=== PATIENT | female | born 1940 | race Caucasian/White ===

== ENCOUNTER 2019-09-08 13:31 | Emergency (ER) | payer MEDICARE, OTHER, SELFPAY ==
--- NOTE | ~2019-09-08 | CT_ITS ---
EXAMINATION: CT brain wo con INDICATION: Headache, history of traumatic brain injury COMPARISON: None TECHNIQUE: Standard unenhanced head CT. The dose-length product (DLP) was 605.33 mGy-cm. The mA was a djusted according to patient size. Iterative reconstruction technique was employed. FINDINGS: There is a hyperdense extra-axial fluid collection adjacent to the left frontal lobe which measures 3 mm in maximum There is no acute intraparenchymal hemorrhage. No evidence of mass lesion. N o evidence of acute infarction. There is encephalomalacia in right frontal lobe. There is mild perive ntricular and subcortical hypodensity probably related to small vessel ischemic disease. There is mil d prominence of the sulci and ventricles related to cerebral atrophy. Intracranial calcified cerebral atherosclerosis is noted. There is no mass effect or midline shift. The orbits and soft tissues are unremarkable. The visualized sinuses and mastoid air cells are well aerated. There are changes of le ft frontotemporal craniotomy. IMPRESSION: 1. Findings consistent with acute left subdural hematoma. Comparison with prior imaging would be help ful. Neurosurgical evaluation is recommended. These findings and recommendations were discussed with Dr. Sendy Sterling MD in the Emergency Department at 1414 hours on 09/08/2019. 2. 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 Reviewed, dictated and finalized at location B. CUTTER IMPRESSION: 1. Findings consistent with acute left subdural hematoma. Comparison with prior imaging would be helpful. Neurosurgical evaluation is recommended. These findi ngs and recommendations were discussed with Dr. Sendy Sterling MD in the [facility] at 1414 hours on 09/08/2019. 2. 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
--- NOTE | 2019-09-08 13:40 | ED.GENADULT ---
HPI - General Adult General Chief complaint: Headache Stated complaint: headache Time Seen by Provider: 09/08/19 13:36 Source: patient, family (daughter) and RN notes reviewed Mode of arrival: ambulatory Limitations: no limitations History of Present Illness HPI narrative: A 79 y/o female presents to the ED because the family is concerned of a possible brain bleed and would like the pt to have a head CT. The pt states that this morning she kept feeling like she had to change the position of her head while she was laying down. The daughter reports that she called the pt's PCP to discussed this since the pt is on Xarelto, who told her to bring the pt to the ED if they had concerns. The pt notes a recent floating sensation that she says is like dizziness when she walks and some urinary urgency. She denies any ANTONY, neck pain, neck stiffness, N/V/D, numbness, weakness, ABD pain, dysuria, or hematuria. patient denies any trauma. MD complaint: The family would like the pt to have a head CT Onset (ago): hour(s) Location: head Exacerbating factors: other (laying down) Associated symptoms: other (dizziness floating sensation when she walks and urinary urgency) Related Data Home Medications Medication Instructions Recorded Confirmed levothyroxine 09/08/19 Allergies Allergy/AdvReac Type Severity Reaction Status Date / Time cetirizine Allergy Unknown Unknown Verified 09/08/19 13:56 No Known Allergies Allergy Verified 09/08/19 13:56 Review of Systems Review of Systems: All systems reviewed & are unremarkable except as noted in HPI and below Gastrointestinal: Gastrointestinal: Denies abdominal pain, Denies diarrhea, Denies nausea and Denies vomiting Genitourinary: Genitourinary: Denies hematuria, Denies dysuria and Reports urinary urgency Musculoskeletal: Musculoskeletal: Denies neck pain and Denies stiffness (neck) Neurologic: Reports dizziness ( floating sensation when she walks), Denies headache(s), Denies numbness and Denies weakness [facility] Past Medical History Medical History (Updated 09/09/19 @ 00:00 by Background Daemon) Arthritis (Acute) GERD (gastroesophageal reflux disease) (Acute) History of angina (Acute) History of coma (Acute) History of herniated intervertebral disc (Acute) Hunner's ulcer (Acute) Hx of fracture of rib (Acute) multiple Hypercholesteremia (Acute) Hypothyroid (Acute) IBS (irritable bowel syndrome) (Acute) MVP (mitral valve prolapse) (Acute) Pneumonia (Acute) Seizures (Acute) UTI (urinary tract infection) (Acute) Surgical History Surgical History (Updated 09/08/19 @ 13:57 by Baldomero Blandon) History of appendectomy (Acute) History of bladder surgery (Acute) suspension, cysto with bladder bx's x2 History of craniotomy (Acute) History of hysterectomy (Acute) History of local excision of skin lesion (Acute) History of tonsillectomy (Acute) History of vascular surgery (Acute) vein laser rt leg Hx of tubal ligation (Acute) Family History Family History (Updated 06/09/14 @ 07:13 by DOCTOR UNKNOWN) Grandparent Cerebrovascular accident Social History Social History Smoking status: Never smoker Second hand tobacco smoke exposure: No Alcohol intake: never Gender identity (if verbalized by the patient): Female Comments PMHx: melanoma rt leg, basal cell on nose. PCP: Dr. Turner. Exam Const: General: healthy appearing, no acute distress and alert Orientation/consciousness: oriented x3 HENMT: Head: normal to inspection, no contusions and no hematomas Ears: TM's normal bilaterally Mouth: Yes moist mucous membranes Eyes: Conjunctivae: conjunctivae normal Pupils: PERRL EOM: EOM intact bilaterally Neck: Neck: normal visual inspection, no lymphadenopathy and no meningeal signs Chest: Chest palpation & inspection: normal inspection of the chest Resp: Effort & Inspection: normal respiratory effort Auscultation: clear to auscultation bilaterally Cardio: Rate: reg
[2019-09-08 13:50] VITALS: BP 146/87; PULSE 82; RESP 17; TEMP 36.8; O2SAT 96
[2019-09-08 14:33] LABS: Basophils Absolute Auto 0.1 K/mm3 (0.0-0.1); Basophils Percent Auto 0.6 % (0.2-1.2); Eosinophils Absolute Auto 0.1 K/mm3 (0-0.3); Eosinophils Percent Auto 1.3 % (0-4.4); Hematocrit 45.6 % (37.0-47.0); Hemoglobin 14.4 g/dL (12.0-15.0); Immature Granulocyte Absolute 0.05 K/mm3 (0.00-0.031); Immature Granulocyte Percent A 0.6 % (0-0.5); Lymphocytes Absolute Auto 1.89 K/mm3 (0.9-3.2); Lymphocytes Percent Auto 22.4 % (18.3-44.2); Mean Corpuscular HGB Conc 31.6 g/dl (32-36); Mean Corpuscular Hemoglobin 29.9 pg (26-34); Mean Corpuscular Volume 94.8 fl (80-100); Mean Platelet Volume 10.8 fl (7.4-10.4); Monocytes Absolute Auto 0.6 K/mm3 (0.1-0.6); Monocytes Percent Auto 6.7 % (2.6-8.5); Neutrophils Absolute Auto 5.8 K/mm3 (1.3-6.7); Neutrophils Percent Auto 68.4 % (45.5-73.1); Platelet Count Result 164 k/mm3 (150-375); Red Blood Count 4.81 M/mm3 (4.2-5.4); Red Cell Distribution Width 14.2 % (11.5-14.5); White Blood Count 8.5 K/mm3 (4.5-10.0)
[2019-09-08 14:38] LABS: Add Urine Microscopic? YES; Appearance Urine Clear (Clear); Bacteria Urine Trace /hpf; Bilirubin Urine Negative (Negative); Blood Urine 1+ (Negative); Color Urine Yellow (Yellow); Glucose Urine UA Negative (Negative); Ketones Urine Negative (Negative); Leukocyte Esterase Ur 3+ LEU/UL (Negative); Mucus Urine Rare /lpf; Nitrate Urine Negative (Negative); Protein Urine Negative (Negative); Specific Grav Ur 1.012 (1.001-1.035); Squamous Epithelial Cell Urine Rare /hpf (Few); Urobilinogen Urine Negative mg/dL (<2.0); WBC Urine 21-30
[2019-09-08 14:51] LABS: INR 1.5; Prothrombin Time 17.8 Seconds (11.1-14.7)
[2019-09-08 14:52] LABS: Partial Thromboplastin Time 43.4 SECONDS (22.3-36.8)
[2019-09-08 15:11] LABS: Alanine Aminotransferase 19 U/L (4-35); Albumin Level 4.2 g/dL (3.5-5.1); Alkaline Phosphatase 67 U/L (38-126); Aspartate Amino Transferase 25 U/L (14-36); Bilirubin,Total 0.3 mg/dL (0.2-1.3); Blood Urea Nitrogen 15 mg/dL (7-17); Calcium 9.2 mg/dL (8.4-10.2); Carbon Dioxide 30 mmol/L (22-30); Chloride 101 mmol/L (98-107); Estimated Glomerular Filt Rate > 60; Glucose 88 mg/dL (65-105); Potassium 3.9 mmol/L (3.4-5.0); Sodium 137 mmol/L (137-145)
[2019-09-08 15:37] VITALS: BP 191/90; PULSE 86; RESP 19; O2SAT 100
[2019-09-08] MEDS: levETIRAcetam 1000MG/NACL100ML 1,000 MG/100 ML BAG 400 MG IVPB (15:37)
[2019-09-08 16:04] VITALS: BP 172/87; PULSE 87; RESP 19; O2SAT 94
[2019-09-08 16:44] VITALS: BP 163/73; PULSE 73; RESP 17; O2SAT 100
== END 2019-09-08 16:46 | disposition short-term general hospital (02) ==
PROVIDERS: Emergency Provider General Practice; PCP Internal Medicine
DX: I62.01 Nontraumatic acute subdural hemorrhage (principal); M19.90 Unspecified osteoarthritis, unspecified site; E78.00 Pure hypercholesterolemia, unspecified; E03.9 Hypothyroidism, unspecified; R56.9 Unspecified convulsions; I34.1 Nonrheumatic mitral (valve) prolapse; Z87.19 Personal history of other diseases of the digestive system; Z87.440 Personal history of urinary (tract) infections; Z79.01 Long term (current) use of anticoagulants; R39.15 Urgency of urination
CPT/HCPCS: 36415; 70450; 80053; 81001; 85025; 85610; 85730; 87086; 87088; 96365; 96375; 99285; C9132; J1953

== ENCOUNTER 2019-11-25 11:37 | Inpatient (IN) | payer MEDICARE, OTHER, SELFPAY ==
[2019-11-25] VITALS (10 sets, daily range): BP systolic 141–158; BP diastolic 67–87; PULSE 88–104; RESP 16–20; TEMP 36.9–37.2; O2SAT 94–98; BMI 35.5
--- NOTE | ~2019-11-25 | US_ITS ---
EXAMINATION: US venous doppler LE EXAM DATE: 11/25/2019 14:27 INDICATION: Pulmonary embolism. Shortness of breath. TECHNIQUE: Multiple grayscale, color flow and Doppler images of the lower extremity deep venous syste ms bilaterally were obtained and reviewed. Comparison is made to prior examination from 11/02/2015. FINDINGS: RIGHT SIDE Common femoral: -------- Normal. Profunda femoral: ------- Normal. Femoral: Normal. Popliteal: Normal. Posterior tibial: --------- Normal. Peroneal: Paired, thrombosed. Gastrocnemius: Not visualized. Soleus: Not visualized. Greater saphenous: -----Thrombosed. Lesser saphenous: ------ Not visualized. LEFT SIDE Common femoral: -------- Normal. Profunda femoral: ------- Normal. Femoral: Normal. Popliteal: Normal. Posterior tibial: --------- Normal. Peroneal: Normal. Gastrocnemius: Not visualized. Soleus: Not visualized. Greater saphenous: ----- Normal. Lesser saphenous: ------ Not visualized. IMPRESSION: 1. Positive for right peroneal DVT, greater saphenous SVT. 2. No left-sided DVT. Reviewed, dictated and finalized at location B. TAL PRE PRESS OPERATOR
--- NOTE | ~2019-11-25 | CT_ITS ---
EXAMINATION: CTA chest PE protocol EXAM DATE: 11/25/2019 13:54 INDICATION: Shortness of breath, low d-dimer. Right-sided chest pain. TECHNIQUE: Spiral CTA of the chest (pulmonary arteries) was performed with 100 cc Omnipaque 350 intr avenous contrast injection. Images were acquired during the pulmonary arterial phase. Coronal maxi mum intensity projection 3D-reconstructions were created by the technologist on dedicated workstation . Axial, coronal and sagittal reformatted images were reviewed. The dose-length product (DLP) for t his examination was 527.82 mGy-cm. The exposure was tailored according to patient size (auto mA exp osure control), and iterative reconstruction (ASIR) was used as additional dose reduction technique. Comparison is made to prior examination from 03/24/2019. FINDINGS: There are multiple scattered right-sided interlobar, segmental pulmonary emboli, and 2 seg mental left-sided pulmonary emboli. No saddle embolism. Some new segments are involved compared to pr evious exam. No thoracic aortic dissection. Scattered small basilar dependent groundglass opacities which could be infection, infarction or edema. Trace pleural or pericardial effusions. Tracheobron chial tree is patent. There is no mediastinal, hilar or axillary lymphadenopathy. There is no pne umothorax. Cardiomegaly. No evidence of coronary arterial calcification. Several liver cysts. Th ere is mild thoracic spondylosis without osteoblastic or osteolytic lesions identified. There are old right rib fractures. IMPRESSION: 1. Scattered right-sided predominant pulmonary emboli. Moderate clot burden. 2. Scattered small groundglass opacities, infarction, infection or edema. 3. Trace pleural and pericardial effusions. 4. Cardiomegaly. I discussed pulmonary emboli with Megan Aguayo MD at 11/25/2019 14:02 HEAD OF HISTORY. Reviewed, dictated and finalized at location B. OF HISTORY
--- NOTE | 2019-11-25 11:58 | ECG_ITS ---
Measurements Intervals [place] Rate: 94 P: 110 WY: 165 QRS: -2 QRSD: 79 T: 47 QT: 327 QTc: 411 Interpretive Statements SINUS RHYTHM LOW QRS VOLTAGE IN PRECORDIAL LEADS DELAYED PRECORDIAL R/S TRANSITION BASELINE ARTIFACT- I, II, III, AVR, AVL BORDERLINE ECG Electronically Signed On 11-25-2019 13:09:41 COMMUNITY DEVELOPMENT TECHNICIAN by Chandrakant Zhao D.O.
[2019-11-25 12:10] LABS: Basophils Absolute Auto 0.1 K/mm3 (0.0-0.1); Basophils Percent Auto 0.5 % (0.2-1.2); Eosinophils Absolute Auto 0.1 K/mm3 (0-0.3); Eosinophils Percent Auto 0.4 % (0-4.4); Hematocrit 45.8 % (37.0-47.0); Hemoglobin 14.3 g/dL (12.0-15.0); Immature Granulocyte Absolute 0.11 K/mm3 (0.00-0.031); Lymphocytes Absolute Auto 1.16 K/mm3 (0.9-3.2); Lymphocytes Percent Auto 10.3 % (18.3-44.2); Mean Corpuscular HGB Conc 31.2 g/dl (32-36); Mean Corpuscular Hemoglobin 30.3 pg (26-34); Mean Platelet Volume 9.4 fl (7.4-10.4); Monocytes Absolute Auto 0.9 K/mm3 (0.1-0.6); Monocytes Percent Auto 8.2 % (2.6-8.5); Neutrophils Absolute Auto 8.9 K/mm3 (1.3-6.7); Neutrophils Percent Auto 79.6 % (45.5-73.1); Platelet Count Result 161 k/mm3 (150-375); Red Blood Count 4.72 M/mm3 (4.2-5.4); Red Cell Distribution Width 15.4 % (11.5-14.5); White Blood Count 11.2 K/mm3 (4.5-10.0)
[2019-11-25 12:21] LABS: Blood Urea Nitrogen 13 mg/dL (7-17); Carbon Dioxide 28 mmol/L (22-30); Chloride 98 mmol/L (98-107); Estimated Glomerular Filt Rate > 60; Glucose 115 mg/dL (65-105); Sodium 136 mmol/L (137-145)
[2019-11-25 12:36] LABS: D Dimer 10.96 ug/mL (<0.48)
--- NOTE | 2019-11-25 13:34 | ED.CHESTPAIN ---
HPI - Chest Pain General Chief Complaint: Shortness of Breath/Dyspnea Stated Complaint: Possible bloodclot in lung Time Seen by Provider: 11/25/19 13:21 Source: patient, family (pt's daughter) and RN notes reviewed Mode of arrival: ambulatory Limitations: no limitations History of Present Illness HPI narrative: Pt is a 79 y/o female with a Hx of PE, who presents to the ED with c/o rt lower chest pain starting last night. She notes that she had been taking anticoagulants for 5 months following her previous PE in March of 2019, but states that she was taken off of the medication several months ago. Pt notes that she recently received a bladder surgery last month for recurrent bladder ulcers. Pt's daughter notes that she hasn't been moving much recently. She notes that she developed pain in her rt lower ribs while sitting down last night. Pt states that her pain radiates into her rt middle back, and notes that her pain is aggravated with deep breathing. She denies any acute SOB, cough, fever, BLE edema, or rash. Pt notes that she took 1 leftover Xarelto this morning due to her being concerned she may be having a PE. MD complaint: chest pain Pertinent past history: other (pulmonary embolism) Onset (ago): day(s) (1) Prior episodes: Yes Onset: during rest Pain location: right chest (rt lower chest) Pain radiation: back (rt middle back) Exacerbating factors: other (deep breathing) Context: history of DVT/PE Associated symptoms: other (none) Treatment prior to arrival: other (Xarelto) Related Data Allergies Allergy/AdvReac Type Severity Reaction Status Date / Time No Known Allergies Allergy Verified 11/25/19 10:49 Review of Systems Review of Systems: Narrative: CONSTITUTIONAL: Denies fever, chills, or sweats. ENT: Denies rhinorrhea, congestion, sore throat, or otalgia. CARDIOVASCULAR: Reports rt lower chest pain radiating into rt middle back. Denies palpitations or BLE edema. RESPIRATORY: Denies cough or dyspnea. SKIN: Denies rash or itching. All systems reviewed & are unremarkable except as noted in HPI and below PMFSH Past Medical History Medical History Arthritis GERD (gastroesophageal reflux disease) History of angina History of coma History of herniated intervertebral disc History of pulmonary embolism March 2019 History of traumatic brain injury Hunner's ulcer Hx of fracture of rib multiple Hypercholesteremia Hypothyroid IBS (irritable bowel syndrome) MVP (mitral valve prolapse) Pneumonia Seizures UTI (urinary tract infection) Surgical History Surgical History History of appendectomy History of bladder surgery suspension, cysto with bladder bx's x2 History of craniotomy History of hysterectomy History of local excision of skin lesion History of tonsillectomy History of vascular surgery vein laser rt leg Hx of tubal ligation Social History Social History Smoking status: Never smoker Second hand tobacco smoke exposure: No Alcohol intake: never Gender identity (if verbalized by the patient): Female Exam Narrative: Exam Narrative: GENERAL: Well-appearing, well-nourished, and in no acute distress. HEAD: Normocephalic, atraumatic. EYES: PERRLA and EOMI. ENT: Nares clear, no rhinorrhea or epistaxis. Mucous membranes moist. NECK: Supple. CHEST: Clear to auscultation. No respiratory distress. No chest wall tenderness. HEART: Regular rate and rhythm. No murmur heard. Normal peripheral pulses. ABDOMEN: Soft, nontender, nondistended, normal active bowel sounds. EXTREMITIES: Normal range of motion. No edema. Lt calf tenderness. SKIN: Warm, dry, no rash. NEURO: No focal deficits. Alert and oriented. Course Consultations Consultation #1: Discussed case with COMPUTER EQUIPMENT INSTALLER to hospitalist, Kellie Case. Accepted admission. Date: 11/25/19 Time: 14:04 Vital Signs Vital signs: Vital
[2019-11-25 14:24] LABS: NT Pro B Type Natriuretic Pept 106 PG/ML (5-100)
[2019-11-25] MEDS: HEPARIN SODIUM 5,000 UNITS/ML VIAL 7200 UNITS IV PUSH (14:50)
[2019-11-25 15:46] LABS: Troponin I < 0.012 ng/mL (0.000-0.034)
--- NOTE | 2019-11-25 16:25 | PC.NURSE ---
This patient, Estrella Fine, was admitted to IMU Room 206-02. Patient/family oriented to hospital policies and general routines including ID bracelet, bed and alarms, visiting hours, pain management, procedures, bathroom and other care routines, personal items, smoking policy, room service/diet, and visiting hours. Valuables list has been completed. Information on how to activate the Rapid Response Team has been discussed. Patient/Family are encouraged to report perceived risks to care and to ask questions if they do not understand what they are told or what they should do.
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
[2019-11-25 18:07] LABS: Basophils Absolute Auto 0.1 K/mm3 (0.0-0.1); Basophils Percent Auto 0.5 % (0.2-1.2); Eosinophils Percent Auto 0.4 % (0-4.4); Hematocrit 42.8 % (37.0-47.0); Hemoglobin 13.6 g/dL (12.0-15.0); Immature Granulocyte Absolute 0.07 K/mm3 (0.00-0.031); Immature Granulocyte Percent A 0.6 % (0-0.5); Lymphocytes Absolute Auto 1.16 K/mm3 (0.9-3.2); Lymphocytes Percent Auto 10.8 % (18.3-44.2); Mean Corpuscular HGB Conc 31.8 g/dl (32-36); Mean Corpuscular Volume 94.5 fl (80-100); Mean Platelet Volume 9.3 fl (7.4-10.4); Monocytes Absolute Auto 0.6 K/mm3 (0.1-0.6); Monocytes Percent Auto 5.7 % (2.6-8.5); Neutrophils Absolute Auto 8.8 K/mm3 (1.3-6.7); Platelet Count Result 153 k/mm3 (150-375); Red Blood Count 4.53 M/mm3 (4.2-5.4); Red Cell Distribution Width 15.4 % (11.5-14.5); White Blood Count 10.8 K/mm3 (4.5-10.0)
[2019-11-25 18:17] LABS: INR 1.4; Prothrombin Time 16.9 Seconds (11.1-14.7)
[2019-11-25 18:20] LABS: Partial Thromboplastin Time 114.2 SECONDS (22.3-36.8)
[2019-11-25 18:31] LABS: Troponin I < 0.012 ng/mL (0.000-0.034)
[2019-11-25] MEDS: HEPARIN SOD/D5W 100 UNITS/ML 25,000 UNITS/250 ML BAG 13 UNITS IV CONT (19:26)
[2019-11-25] MEDS: ACETAMINOPHEN 325 MG TABLET 650 MG PO (19:29)
[2019-11-26] VITALS (17 sets, daily range): BP systolic 124–148; BP diastolic 61–82; PULSE 80–102; RESP 18–20; TEMP 36–36.8; O2SAT 91–96
--- NOTE | 2019-11-26 | ECHO_ITS ---
Patient Info Name: Estrella Fine Age: 79 years : 1940 Gender: Female Ht: 65 in Wt: 198 lbs BSA: 2.06 m2 HR: 101 bpm BP: 142 / 85 mmHg Technical Quality: Good Exam Date: 11/26/2019 1:22 PM Exam Location: [facility] Patient Status: Inpatient Admit Date: 11/26/2019 Staff Ordering Physician: Megan Aguayo MD Assembler: Terence Ludwig, LETY, RT Attending Provider: Rosangela Valdez MD Referring Physician: Dede PRESTON; Exam Type: CA echo doppler color flow Study Info Indications I26.99 - Other pulmonary embolism without acute cor pulmonale Complete two-dimensional, color flow and Doppler transthoracic echocardiogram is performed with contrast to opacify the left ventrical and to improve the deliniation of the left ventrical endocarial boarders. Summary 1. Left ventricular chamber dimension is normal. 2. Left ventricular systolic function is normal, estimated at 60-65%. 3. Definity contrast administered improved wall motion interpretation. 4. There is mildly increased left ventricular wall thickness. 5. The left ventricular diastolic function is grade I diastolic dysfunction. 6. E/e' 6 is not elevated. 7. There is mild tricuspid valve regurgitation. 8. Moderate pulmonary hypertension, estimated pulmonary arterial systolic pressure is 52 mmHg. 9. There is trace pulmonic regurgitation. Left Ventricle Definity contrast administered improved wall motion interpretation. E/e' 6 is not elevated. Left ventricular chamber dimension is normal. Left ventricular systolic function is normal, estimated at 60-65%. There is mildly increased left ventricular wall thickness. The left ventricular diastolic function is grade I diastolic dysfunction. Right Ventricle Right ventricular chamber dimension is normal. Right ventricular systolic function is normal. Left Atria Left atrial chamber dimension is normal. Right Atria Right atrial chamber dimension is normal. Aortic Valve The aortic valve is trileaflet. There is no aortic valve stenosis. There is no aortic valve regurgitation. Pulmonic Valve There is trace pulmonic regurgitation. Mitral Valve There is no mitral valve stenosis. There is no mitral valve regurgitation. Tricuspid Valve There is mild tricuspid valve regurgitation. Moderate pulmonary hypertension, estimated pulmonary arterial systolic pressure is 52 mmHg. Pericardium/Pleural There is no pericardial effusion. Inferior Vena Cava Normal inferior vena cava with >50% collapse upon inspiration consistent with normal right atrial pressure, 5 mmHg. Aorta The aortic root size at the sinus of Valsalva is normal. Left Ventricular Outflow Tract Name Value Normal LVOT 2D LVOT Diameter 2.0 cm LVOT Doppler LVOT Peak Velocity 94 cm/s LVOT Peak Gradient 4 mmHg LVOT Mean Gradient 2 mmHg LVOT VTI 18 cm LVOT VTI/AV VTI Ratio 1.0 LVOT Stroke Volume 53 ml LVOT CO 5.6
[2019-11-26] MEDS: ACETAMINOPHEN 325 MG TABLET 650 MG PO ×2 (01:24→06:04)
[2019-11-26 02:07] LABS: Basophils Percent Auto 0.4 % (0.2-1.2); Eosinophils Absolute Auto 0.1 K/mm3 (0-0.3); Eosinophils Percent Auto 0.5 % (0-4.4); Hematocrit 42.3 % (37.0-47.0); Hemoglobin 13.2 g/dL (12.0-15.0); Immature Granulocyte Absolute 0.08 K/mm3 (0.00-0.031); Immature Granulocyte Percent A 0.8 % (0-0.5); Lymphocytes Absolute Auto 1.27 K/mm3 (0.9-3.2); Lymphocytes Percent Auto 12.8 % (18.3-44.2); Mean Corpuscular HGB Conc 31.2 g/dl (32-36); Mean Corpuscular Hemoglobin 30.3 pg (26-34); Mean Platelet Volume 9.3 fl (7.4-10.4); Monocytes Absolute Auto 0.8 K/mm3 (0.1-0.6); Monocytes Percent Auto 8.1 % (2.6-8.5); Neutrophils Absolute Auto 7.7 K/mm3 (1.3-6.7); Neutrophils Percent Auto 77.4 % (45.5-73.1); Platelet Count Result 147 k/mm3 (150-375); Red Blood Count 4.36 M/mm3 (4.2-5.4); Red Cell Distribution Width 15.4 % (11.5-14.5)
[2019-11-26 02:19] LABS: Alanine Aminotransferase 26 U/L (4-35); Albumin Level 3.5 g/dL (3.5-5.1); Alkaline Phosphatase 68 U/L (38-126); Aspartate Amino Transferase 20 U/L (14-36); Bilirubin,Total 0.7 mg/dL (0.2-1.3); Blood Urea Nitrogen 9 mg/dL (7-17); Calcium 8.5 mg/dL (8.4-10.2); Carbon Dioxide 28 mmol/L (22-30); Chloride 97 mmol/L (98-107); Estimated CRCL calculation 64 ml/min; Estimated Glomerular Filt Rate > 60; Glucose 120 mg/dL (65-105); Magnesium 2.1 mg/dL (1.6-2.3); Partial Thromboplastin Time 153.8 SECONDS (22.3-36.8); Potassium 3.8 mmol/L (3.4-5.0); Sodium 136 mmol/L (137-145)
[2019-11-26] MEDS: LEVOTHYROXINE SODIUM 100 MCG TABLET PO (06:01)
[2019-11-26] MEDS: ATORVASTATIN 20 MG TABLET PO (09:14)
[2019-11-26] MEDS: TRAMADOL HCL 50 MG TABLET PO ×3 (09:14→20:50)
--- NOTE | 2019-11-26 11:44 | PM.IMPN ---
Progress Note: A&P Assessment and Plan (1) Pulmonary embolism: Qualifiers: Acute cor pulmonale presence: without acute cor pulmonale Chronicity: acute Pulmonary embolism type: other Qualified Code(s): I26.99 - Other pulmonary embolism without acute cor pulmonale Code(s): I26.99 - Other pulmonary embolism without acute cor pulmonale Status: Acute Assessment and Plan: As stated above moderate clot burden but hemodynamically stable. Continue IV heparin and with her degree of splinting will institute incentive spirometry and mobilize as quickly as possible. Transition to Xarelto Xa inhibitor hopefully within 48-72 hours if pain subsides (2) Hypothyroid: Code(s): E03.9 - Hypothyroidism, unspecified Status: Chronic Assessment and Plan: Continue thyroid replacement (3) Hypercholesteremia: Code(s): E78.00 - Pure hypercholesterolemia, unspecified Status: Chronic Assessment and Plan: Continue statin Subjective Date/time seen: 11/26/19 11:44 Interval history: Date of visit 11/26. 79-year-old white female with previous history of DVT/PE admitted with right-sided pleuritic chest pain and found to have recurrent pulmonary emboli. Moderate clot burden but blood pressure is stable, saturating above 90% on room air, and troponin negative. With the degree of pain placed on IV heparin plan to transition back to Xarelto before discharge. Still having a fair amount of pain but no shortness of breath. Exam Narrative: Exam Narrative: Blood pressure 136/70 pulse is 90 saturating 92% on room air afebrile Pupils equal reactive to light sclera anicteric Lungs clear CV regular rate rhythm murmurs Abdomen is soft nontender Extremities is there is some tenderness in the right calf area, dorsalis pedis posterior tibial 2+ and symmetrical Neuro alert pleasant cooperative short-term memory is suspect, no focal deficit Integument no skin breakdown or rashes Objective Data Vital Signs Vital Signs: Vital Signs - 24 hr 11/25/19 11:58 11/25/19 13:30 11/25/19 14:00 Temperature 37.2 C Pulse Rate 95 95 99 Respiratory Rate 20 16 16 Blood Pressure 141/72 H 143/87 H 158/81 H Pulse Oximetry 96 95 98 11/25/19 15:20 11/25/19 16:20 11/25/19 17:08 Temperature 36.9 C Pulse Rate 98 94 93 Respiratory Rate 20 20 Blood Pressure 148/81 H 154/77 H Pulse Oximetry 98 94 11/25/19 18:00 11/25/19 19:56 11/25/19 20:00 Temperature 36.9 C Pulse Rate 95 93 104 H Respiratory Rate 20 Blood Pressure 156/67 H Pulse Oximetry 94 11/25/19 22:00 11/26/19 00:00 11/26/19 02:00 Temperature 36.0 C L Pulse Rate 88 80 87 Respiratory Rate Blood Pressure 124/61 Pulse Oximetry 93 11/26/19 03:30 11/26/19 04:00 11/26/19 06:00 Temperature 36.3 C L Pulse Rate 102 H 102 H 95 Respiratory Rate 20 Blood Pressure 145/82 H Pulse Oximetry 95 95 11/26/19 08:00 11/26/19 08:01 11/26/19 10:00 Temperature 36.4 C Pulse Rate 100 93 97 Respiratory Rate 20 Blood Pressure 137/70 Pulse Oximetry 91 Intake/Output Intake/Output: Intake & Output 11/23/19 11/24/19 11/25/19 11/26/19 23:59 23:59 23:59 23:59 Intake Total 340 793 Output Total 1000 Balance 340 -207 Meds/Results Medications: Active Medications Generic Name Dose Route Start Last Admin Trade Name Freq PRN Reason Stop Dose Admin Acetaminophen 650 mg 11/25/19 14:09 11/26/19 06:04 Tylenol Tablet PO 650 mg Q4H PRN Administration Mild Pain (1-3) or Fever Atorvastatin Calcium 20 mg 11/26/19 09:00 11/26/19 09:14 Lipitor PO 20 mg DAILY BISHNU Administration Heparin Sodium (Porcine) 5,500 units 11/25/19 14:01 Heparin Sodium IV PUSH PRN PRN aPTT less than 55 seconds Heparin Sodium (Porcine) 3,000 units 11/25/19 14:01 Heparin Sodium IV PUSH PRN PRN aPTT 55 - 70 seconds Heparin Sodium/Dextrose 25,000 units in 250 mls @ 11 mls/hr
[2019-11-26 11:55] LABS: Total Triiodothyronine (T3) 0.77 NG/ML (0.97-1.69)
[2019-11-26] MEDS: PERFLUTREN LIPID MICROSPHERES 1.5 ML VIAL DILUTED TO 10 ML TOTAL VOLUME IV PUSH (14:10)
[2019-11-26 15:50] LABS: Partial Thromboplastin Time 76.9 SECONDS (22.3-36.8)
[2019-11-26] MEDS: HEPARIN SOD/D5W 100 UNITS/ML 25,000 UNITS/250 ML BAG 11 UNITS IV CONT (18:55)
[2019-11-27] VITALS (12 sets, daily range): BP systolic 119–144; BP diastolic 56–70; PULSE 88–100; RESP 16–20; TEMP 36.1–36.8; O2SAT 90–98
[2019-11-27 04:39] LABS: Basophils Percent Auto 0.4 % (0.2-1.2); Eosinophils Percent Auto 0.4 % (0-4.4); Hematocrit 41.9 % (37.0-47.0); Hemoglobin 13.1 g/dL (12.0-15.0); Immature Granulocyte Absolute 0.07 K/mm3 (0.00-0.031); Immature Granulocyte Percent A 0.7 % (0-0.5); Lymphocytes Percent Auto 8.8 % (18.3-44.2); Mean Corpuscular HGB Conc 31.3 g/dl (32-36); Mean Corpuscular Volume 96.1 fl (80-100); Mean Platelet Volume 9.5 fl (7.4-10.4); Monocytes Absolute Auto 0.7 K/mm3 (0.1-0.6); Monocytes Percent Auto 6.5 % (2.6-8.5); Neutrophils Absolute Auto 8.6 K/mm3 (1.3-6.7); Neutrophils Percent Auto 83.2 % (45.5-73.1); Platelet Count Result 175 k/mm3 (150-375); Red Blood Count 4.36 M/mm3 (4.2-5.4); White Blood Count 10.3 K/mm3 (4.5-10.0)
[2019-11-27 04:56] LABS: Partial Thromboplastin Time 110.5 SECONDS (22.3-36.8)
[2019-11-27] MEDS: LEVOTHYROXINE SODIUM 100 MCG TABLET PO (06:07)
[2019-11-27] MEDS: ONDANSETRON INJ 4 MG/2 ML VIAL IV PUSH (07:53)
[2019-11-27] MEDS: PANTOPRAZOLE 40 MG TABLET PO (10:51)
--- NOTE | 2019-11-27 11:10 | PM.IMPN ---
Progress Note: A&P Assessment and Plan (1) Pulmonary embolism: Qualifiers: Acute cor pulmonale presence: without acute cor pulmonale Chronicity: acute Pulmonary embolism type: other Qualified Code(s): I26.99 - Other pulmonary embolism without acute cor pulmonale Code(s): I26.99 - Other pulmonary embolism without acute cor pulmonale Status: Acute Assessment and Plan: As stated above moderate clot burden but hemodynamically stable. Continue IV heparin and with her degree of splinting will instituted incentive spirometry and mobilize as quickly as possible. Transition to Xarelto Xa inhibitor hopefully within 48-72 hours if pain subsides. Echo no RVH just mod pul HTN increase activity (2) Hypothyroid: Code(s): E03.9 - Hypothyroidism, unspecified Status: Chronic Assessment and Plan: Continue thyroid replacement (3) Hypercholesteremia: Code(s): E78.00 - Pure hypercholesterolemia, unspecified Status: Chronic Assessment and Plan: Continue statin Subjective Date/time seen: 11/27/19 11:10 Interval history: Date of visit 11/27. 79-year-old white female with previous history of DVT/PE admitted with right-sided pleuritic chest pain and found to have recurrent pulmonary emboli. Moderate clot burden but blood pressure is stable, saturating above 90% on room air, and troponin negative. Echo no right sided failure and mod pul htn With the degree of pain placed on IV heparin plan to transition back to Xarelto before discharge. Still having some pain but no shortness of breath. Some nausea today too Exam Narrative: Exam Narrative: Blood pressure 144/66 pulse is 88 saturating 92% on room air afebrile Pupils equal reactive to light sclera anicteric Lungs clear CV regular rate rhythm murmurs Abdomen is soft nontender Extremities is there is some tenderness in the right calf area, dorsalis pedis posterior tibial 2+ and symmetrical Neuro alert pleasant cooperative short-term memory is suspect, no focal deficit Objective Data Vital Signs Vital Signs: Vital Signs - 24 hr 11/26/19 12:00 11/26/19 12:34 11/26/19 13:54 Temperature 36.7 C Pulse Rate 99 97 101 H Respiratory Rate 18 Blood Pressure 142/69 H Pulse Oximetry 91 11/26/19 15:53 11/26/19 16:00 11/26/19 17:57 Temperature 36.6 C Pulse Rate 97 99 91 Respiratory Rate 18 Blood Pressure 147/63 H Pulse Oximetry 96 11/26/19 19:37 11/26/19 20:00 11/26/19 22:00 Temperature 36.8 C Pulse Rate 93 93 96 Respiratory Rate 18 18 Blood Pressure 148/67 H Pulse Oximetry 91 91 11/27/19 00:00 11/27/19 02:00 11/27/19 04:00 Temperature 36.6 C 36.6 C Pulse Rate 98 94 92 Respiratory Rate 18 20 Blood Pressure 131/67 140/70 Pulse Oximetry 91 92 11/27/19 06:00 11/27/19 08:00 11/27/19 08:35 Temperature 36.1 C L Pulse Rate 98 98 88 Respiratory Rate 16 Blood Pressure 144/67 H Pulse Oximetry 92 Intake/Output Intake/Output: Intake & Output 11/24/19 11/25/19 11/26/19 11/27/19 23:59 23:59 23:59 23:59 Intake Total 340 1540 612 Output Total 1150 600 Balance 340 390 12 Meds/Results Medications: Active Medications Generic Name Dose Route Start Last Admin Trade Name Freq PRN Reason Stop Dose Admin Acetaminophen 650 mg 11/25/19 14:09 11/26/19 06:04 Tylenol Tablet PO 650 mg Q4H PRN Administration Mild Pain (1-3) or Fever Atorvastatin Calcium 20 mg 11/26/19 09:00 11/26/19 09:14 Lipitor PO 20 mg DAILY BISHNU Administration Heparin Sodium (Porcine) 5,500 units 11/25/19 14:01 Heparin Sodium IV PUSH PRN PRN aPTT less than 55 seconds Heparin Sodium (Porcine) 3,000 units 11/25/19 14:01 Heparin Sodium IV PUSH PRN PRN aPTT 55 - 70 seconds Heparin Sodium/Dextrose 25,000 units in 250 mls @ 10 mls/hr 11/25/19 15:00 11/27/19 05:25 Heparin Sodium/D5w 100 Units/Ml IV CONT 1,000 units/hr .Q24H BISHNU 10 mls/
[2019-11-27 12:17] LABS: Partial Thromboplastin Time 48.4 SECONDS (22.3-36.8)
[2019-11-27] MEDS: HEPARIN SODIUM 5,000 UNITS/ML VIAL 5500 UNITS IV PUSH (12:41)
--- NOTE | 2019-11-27 14:10 | PC.NURSE ---
Transfer received from IMU per bed at 1405. Family at bedside. Report received by Rosa Olivera RN from Katt Cardozo RN. MAR reviewed prior to transfer with questions r/t atorvastatin administration from 0900 on 11/27/2019 and heparin administration -1 day on detail screen. Confirmation that PTT has been ordered per titration guidelines provided after patient arrived to unit via telephone.
[2019-11-27] MEDS: ATORVASTATIN 20 MG TABLET PO (14:29)
[2019-11-27] MEDS: HEPARIN SOD/D5W 100 UNITS/ML 25,000 UNITS/250 ML BAG 13 UNITS IV CONT (18:13)
[2019-11-27] MEDS: EUCERIN CREAM 120 GM JAR 1 APPLIC TOPICAL (18:18)
[2019-11-27 19:26] LABS: Partial Thromboplastin Time 161.1 SECONDS (22.3-36.8)
[2019-11-27] MEDS: HEPARIN SOD/D5W 100 UNITS/ML 25,000 UNITS/250 ML BAG 11 UNITS IV CONT (20:30)
[2019-11-28] VITALS: BP 130/56; PULSE 88; RESP 16; TEMP 36.4; O2SAT 92
[2019-11-28 03:03] LABS: Basophils Percent Auto 0.4 % (0.2-1.2); Eosinophils Absolute Auto 0.1 K/mm3 (0-0.3); Eosinophils Percent Auto 1.6 % (0-4.4); Hemoglobin 12.6 g/dL (12.0-15.0); Immature Granulocyte Percent A 1.3 % (0-0.5); Lymphocytes Absolute Auto 1.02 K/mm3 (0.9-3.2); Lymphocytes Percent Auto 13.5 % (18.3-44.2); Mean Corpuscular HGB Conc 31.5 g/dl (32-36); Mean Corpuscular Hemoglobin 30.3 pg (26-34); Mean Corpuscular Volume 96.2 fl (80-100); Mean Platelet Volume 9.6 fl (7.4-10.4); Monocytes Absolute Auto 0.5 K/mm3 (0.1-0.6); Monocytes Percent Auto 6.7 % (2.6-8.5); Neutrophils Absolute Auto 5.8 K/mm3 (1.3-6.7); Neutrophils Percent Auto 76.5 % (45.5-73.1); Platelet Count Result 200 k/mm3 (150-375); Red Blood Count 4.16 M/mm3 (4.2-5.4); Red Cell Distribution Width 15.1 % (11.5-14.5); White Blood Count 7.6 K/mm3 (4.5-10.0)
[2019-11-28 03:11] LABS: Partial Thromboplastin Time 138.9 SECONDS (22.3-36.8)
[2019-11-28 04:00] VITALS: BP 120/62; PULSE 86; RESP 14; TEMP 36.9; O2SAT 91
[2019-11-28] MEDS: LEVOTHYROXINE SODIUM 100 MCG TABLET PO (06:21)
[2019-11-28 08:00] VITALS: BP 137/55; PULSE 75; RESP 16; TEMP 36.7; O2SAT 91
[2019-11-28] MEDS: EUCERIN CREAM 120 GM JAR 1 APPLIC TOPICAL (08:29)
[2019-11-28] MEDS: ATORVASTATIN 20 MG TABLET PO (08:29)
[2019-11-28] MEDS: PANTOPRAZOLE 40 MG TABLET PO (08:29)
[2019-11-28 10:42] LABS: Partial Thromboplastin Time 68.8 SECONDS (22.3-36.8)
[2019-11-28] MEDS: HEPARIN SODIUM 5,000 UNITS/ML VIAL 3000 UNITS IV PUSH (11:01)
[2019-11-28 12:00] VITALS: BP 135/72; PULSE 88; RESP 18; TEMP 36.7; O2SAT 92
[2019-11-28 14:37] VITALS: BP 148/92; PULSE 98; RESP 18; TEMP 36.4; O2SAT 91
--- NOTE | 2019-11-28 15:02 | PM.IMPN ---
Progress Note: A&P Assessment and Plan (1) Pulmonary embolism: Qualifiers: Acute cor pulmonale presence: without acute cor pulmonale Chronicity: acute Pulmonary embolism type: other Qualified Code(s): I26.99 - Other pulmonary embolism without acute cor pulmonale Code(s): I26.99 - Other pulmonary embolism without acute cor pulmonale Status: Acute Assessment and Plan: As stated above moderate clot burden but hemodynamically stable. Continue IV heparin and with her degree of splinting will instituted incentive spirometry and mobilize as quickly as possible. Transition to Xarelto Xa inhibitor this pm. Echo no RVH just mod pul HTN increase activity (2) Hypothyroid: Code(s): E03.9 - Hypothyroidism, unspecified Status: Chronic Assessment and Plan: Continue thyroid replacement (3) Hypercholesteremia: Code(s): E78.00 - Pure hypercholesterolemia, unspecified Status: Chronic Assessment and Plan: Continue statin Subjective Date/time seen: 11/28/19 15:02 Interval history: Date of visit 11/28. 79-year-old white female with previous history of DVT/PE admitted with right-sided pleuritic chest pain and found to have recurrent pulmonary emboli. Moderate clot burden but blood pressure is stable, saturating above 90% on room air, and troponin negative. Echo no right sided failure and mod pul htn. Still having some pain with deep inspiration but better and no shortness of breath. Nausea had yesterday subsided Exam Narrative: Exam Narrative: Blood pressure 136/56 pulse is 94 saturating 92% on room air afebrile Pupils equal reactive to light sclera anicteric Lungs clear CV regular rate rhythm murmurs Abdomen is soft nontender Extremities is there is some tenderness in the right calf area, dorsalis pedis posterior tibial 2+ and symmetrical Neuro alert pleasant cooperative short-term memory is suspect, no focal deficit Objective Data Vital Signs Vital Signs: Vital Signs - 24 hr 11/27/19 18:00 11/27/19 20:00 11/28/19 00:00 Temperature 36.5 C 36.4 C 36.4 C Pulse Rate 90 99 88 Respiratory Rate 18 18 16 Blood Pressure 119/56 L 138/70 130/56 L Pulse Oximetry 98 92 92 11/28/19 04:00 11/28/19 08:00 11/28/19 12:00 Temperature 36.9 C 36.7 C 36.7 C Pulse Rate 86 75 88 Respiratory Rate 14 16 18 Blood Pressure 120/62 137/55 L 135/72 Pulse Oximetry 91 91 92 11/28/19 14:37 Temperature 36.4 C L Pulse Rate 98 Respiratory Rate 18 Blood Pressure 148/92 H Pulse Oximetry 91 Intake/Output Intake/Output: Intake & Output 11/25/19 11/26/19 11/27/19 11/28/19 23:59 23:59 23:59 23:59 Intake Total 340 1540 1340 1470 Output Total 1150 775 950 Balance 340 390 565 520 Meds/Results Medications: Active Medications Generic Name Dose Route Start Last Admin Trade Name Freq PRN Reason Stop Dose Admin Acetaminophen 650 mg 11/25/19 14:09 11/26/19 06:04 Tylenol Tablet PO 650 mg Q4H PRN Administration Mild Pain (1-3) or Fever Atorvastatin Calcium 20 mg 11/26/19 09:00 11/28/19 08:29 Lipitor PO 20 mg DAILY BISHNU Administration Heparin Sodium (Porcine) 5,500 units 11/25/19 14:01 11/27/19 12:41 Heparin Sodium IV PUSH 5,500 units PRN PRN Administration aPTT less than 55 seconds Heparin Sodium (Porcine) 3,000 units 11/25/19 14:01 11/28/19 11:01 Heparin Sodium IV PUSH 3,000 units PRN PRN Administration aPTT 55 - 70 seconds Heparin Sodium/Dextrose 25,000 units in 250 mls @ 10 mls/hr 11/27/19 20:40 11/28/19 10:55 Heparin Sodium/D5w 100 Units/Ml IV CONT 11/28/19 16:00 1,000 units/hr .Q24H BISHNU 10 mls/hr Titration Protocol 1,000 UNITS/HR Levothyroxine Sodium 100 mcg 11/26/19 06:30 11/28/19 06:21 Synthroid PO 100 mcg DAILY@0630 [facility] Administration Multi-Ingred Cream/Lotion/Oil/Oint 1 applic 11/27/19 09:00 11/28/19 08:29 Minerin Creme TOPICAL 1 applic QAM [facility] Administrat
--- NOTE | 2019-11-28 16:00 | PCPTNOTE ---
Patient refused treatment this session due to patient wanting to take a nap.
[2019-11-28] MEDS: RIVAROXABAN 15 MG TABLET PO (16:44)
[2019-11-28 17:21] LABS: Partial Thromboplastin Time 70.2 SECONDS (22.3-36.8)
[2019-11-28 20:00] VITALS: BP 134/68; PULSE 95; RESP 16; TEMP 36.2; O2SAT 100
[2019-11-29] MEDS: LEVOTHYROXINE SODIUM 100 MCG TABLET PO (05:38)
[2019-11-29] MEDS: ATORVASTATIN 20 MG TABLET PO (08:53)
[2019-11-29] MEDS: PANTOPRAZOLE 40 MG TABLET PO (08:53)
[2019-11-29] MEDS: RIVAROXABAN 15 MG TABLET PO (08:53)
[2019-11-29] MEDS: EUCERIN CREAM 120 GM JAR 1 APPLIC TOPICAL (08:54)
--- NOTE | 2019-11-29 18:26 | P.DS_ITS ---
DS: Diagnosis Admitting Diagnosis Admitting Diagnosis: Other pulmonary embolism without acute cor pulmonale Discharge Diagnosis (1) Pulmonary embolism: Qualifiers: Acute cor pulmonale presence: without acute cor pulmonale Chronicity: acute Pulmonary embolism type: other Qualified Code(s): I26.99 - Other pulmo nary embolism without acute cor pulmonale Code(s): I26.99 - Other pulmonary embolism without acute cor pulmonale Status: Acute Assessment and Plan: CT revealed moderate clot burden but hemodynamically stable. IV heparin and with her degree of splinting and incentive spirometry and mobilized as quickly as possible. Transitioned to Xarelto Xa inhibitor 2/16 pm. Echo no RVH just mod pul HTN Venous Doppler also revealed DVT and right greater saphenous and posterior tibial Chest pain much improved by time of discharge (2) Hypothyroid: Code(s): E03.9 - Hypothyroidism, unspecified Status: Chronic Assessment and Plan: Continue thyroid replacement (3) Hypercholesteremia: Code(s): E78.00 - Pure hypercholesterolemia, unspecified Status: Chronic Assessment and Plan: Continue statin DS: Summary Hospital Course Hospital Course: 7-year-old white female admitted with right-sided chest pain. CTA revealed pulmonary emboli with moderate clot burden. Troponins were negative. Echo revealed no right ventricular strain just moderate pulmonary hypertension. Venous Doppler revealed DVT the right greater saphenous and popliteal She was treated with IV heparin and transition to Xarelto 15 b.i.d. for 21 days followed by 20 daily. By the time of discharge her pain had markedly improved. Activity as tolerated and follow-up with Dr. Turner within 2 weeks Time Spent with Patient Time attestation: Total time spent providing and/or coordinating discharge services: 35 minutes Exam Narrative: Exam Narrative: Condition on discharge Blood pressure 136/70 pulse is 86 saturating 96% on room air Lungs were clear CV regular rate rhythm Extremities still mild tenderness in the right calf and popliteal area but no appreciable edema Pain had markedly improved taking better respirations She was up ambulating and taking a diet well. Discharge Plan Discharge Attending physician on discharge: Jac Fountain Discharging Clinician: Jac Fountain Patient Disposition: Home, Self-Care Activity: as tolerated Diet: low cholesterol Patient Instructions: Antibiotic Form, Rivaroxaban (By mouth), Pain Management Older Adults (GEN), Venous Thromboembolism (DC) Stand Alone Forms: General Discharge Information Follow-up/Referrals: Pineda Turner, DO [Primary Care Provider] - 1 Week (Follow up with DIONE Prater at Dr. Turner's on 12/06/2019 at 10:30 am.) Discharge Medications: New Xarelto 15 mg (42)- 20 mg (9) tablets,dose pack See Rx Instructions .ROUTE .COMPLEX Qty: 1 RF: 0 Continued levothyroxine 100 mcg tablet 100 mcg PO DAILY Qty: 30 RF: 5 atorvastatin [Lipitor] 20 mg tablet 20 mg PO DAILY Qty: 90 RF: 0 Date of admission: 11/26/19 11:26 Primary Care Provider: Pineda Turner Admitting Provider: Rosangela Valdez Discharge Date/Time: 11/29/19 11:20 Attending physician on admission: Rosangela Valdez Condition: Stable Quality VTE Prophylaxis VTE prophylaxis: pharmacologic ordered
== END 2019-11-29 11:20 | disposition home or self-care (01) | DRG 176 ==
LOC: ANHED 14:13 → ANHIMU 15:02 → ANH3MED 11-27 22:24 → ANHIMU 12-01 13:07
PROVIDERS: Emergency Medicine; Family Medicine; Nurse Practitioner; Physician Assistant; Admitting Provider Family Medicine; Emergency Provider Emergency Medicine; PCP Internal Medicine; Visit Provider Internal Medicine
DX: I26.99 Other pulmonary embolism without acute cor pulmonale (principal); I82.451 Acute embolism and thrombosis of right peroneal vein; I82.811 Embolism and thrombosis of superficial veins of right lower extremity; I34.1 Nonrheumatic mitral (valve) prolapse; M19.90 Unspecified osteoarthritis, unspecified site; Z85.828 Personal history of other malignant neoplasm of skin; Z87.820 Personal history of traumatic brain injury; E78.00 Pure hypercholesterolemia, unspecified; Z86.711 Personal history of pulmonary embolism; E03.9 Hypothyroidism, unspecified; K58.9 Irritable bowel syndrome, unspecified; Z85.820 Personal history of malignant melanoma of skin; Z87.440 Personal history of urinary (tract) infections; Z90.710 Acquired absence of both cervix and uterus; Z23 Encounter for immunization
CPT/HCPCS: 36415; 71275; 80048; 80053; 83735; 83880; 84439; 84443; 84480; 84484; 85025; 85380; 85610; 85730; 90471; 90686; 93005; 93306; 93970; 96374; 96376; 97161; 97165; 99285; A9270; G0008; G0378; J1644; J2405; Q9957; Q9967

== ENCOUNTER 2020-05-09 10:40 | Outpatient (CLI) | payer MEDICARE, OTHER, SELFPAY | END 2020-05-09 10:41 | disposition home or self-care (01) | PROVIDERS: PCP Internal Medicine; Visit Provider Urology | DX: N30.10 Interstitial cystitis (chronic) without hematuria (principal) | CPT/HCPCS: 87086; 87088 ==

== ENCOUNTER 2020-05-10 00:48 | Outpatient (CLI) | payer MEDICARE, OTHER, SELFPAY ==
[2020-05-10 19:19] LABS: SARS-CoV-2 RNA PCR Negative
== END 2020-05-10 00:49 | disposition home or self-care (01) ==
LOC: ANHCOVIDDT 00:48
PROVIDERS: PCP Internal Medicine; Visit Provider Urology
DX: Z01.812 Encounter for preprocedural laboratory examination (principal); Z11.59 Encounter for screening for other viral diseases
CPT/HCPCS: 87635; C9803; U0003

== ENCOUNTER 2020-05-12 01:16 | Day surgery (SDC) | payer MEDICARE, OTHER, SELFPAY ==
[2020-05-08 13:47] VITALS: BMI 31.4
--- NOTE | 2020-05-11 11:11 | WPDANESEPPF ---
Anes - Initial Pre Proc Eval Procedure: Operation Date: 05/12/20 11:45 Proposed Procedures p Cystoscopy, Bladder Biopsy, Steroid Injection - Freddie Be MD Date/Time: 05/11/20 11:11 Surgeon: Freddie Be MD Pre Op Diagnosis: Juan Diego's Ulcer Patient Data Age: 79 Gender: F Height: 1.7 m Weight: 90.9 kg Allergies Allergy/AdvReac Type Severity Reaction Status Date / Time No Known Allergies Allergy Verified 05/08/20 13:41 Home Medications Medication Instructions Recorded Confirmed Type atorvastatin 20 mg tablet 20 mg PO DAILY #90 tablet 02/03/20 05/08/20 Rx levothyroxine 100 mcg tablet 100 mcg PO DAILY #30 tablet 04/26/20 05/08/20 Rx rivaroxaban [Xarelto] 20 mg PO DAILY 05/08/20 05/08/20 History Patient hx anesthesia problems: none Family hx anesthesia problems: none [facility] Social History Social History Social History: The patient has 4 children. Three sons and 1 daughter. She was and he later . She is a full code. Her son Kris is the power employment law attorney for healthcare. 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 She has never smoked. Smoking status: Never smoker Second hand tobacco smoke exposure: Yes Alcohol intake: never Substance use: never Substance use type: does not use Living arrangements: with family Gender identity (if verbalized by the patient): Female Spiritual care concerns: No Agree to blood products: Yes Anes - Eval Final PreProcedure Day of Procedure 05/11/20 11:11 Patient weight: obese Heart: regular rate and rhythm Lungs: clear to auscultation and normal air movement Airway: Mallampati scale class II Neurological: alert and oriented Last oral intake: >/= 8 hours ASA classification: III Emergent: no Anesthetic plan: proceed Anesthesia type and monitoring: general GIVS and standard monitoring Informed Consent: The patient's anesthetic plan and its attendant risks and benefits were discussed with the patient/family/POA. Questions were solicited and answers provided to the satisfaction of the patient/family/POA.
--- NOTE | 2020-05-12 07:16 | WPDHPUPDATE1 ---
History and Physical Update Update Date/Time: 05/12/20 07:16 History and Physical has been reviewed, including an updated exam of the patient. There are NO changes in the patient's condition. Risks, benefits, and alternatives have been discussed and questions answered. Patient agrees to proceed with procedure.
[2020-05-12] MEDS: LACTATED RINGERS 1,000 ML 30 ML IV CONT (10:45)
[2020-05-12 11:00] VITALS: BP 134/82; PULSE 82; RESP 18; TEMP 36.2; O2SAT 96
[2020-05-12] MEDS: ceFAZolin 2 GM/D5W 50 ML 2 GM/50 ML BAG IVPB (11:02)
[2020-05-12] MEDS: TRIAMCINOLONE ACET INJ 40 MG/ML VIAL 200 MG IM (11:20)
[2020-05-12] MEDS: LIDOCAINE HCL 2% GEL UROJET 10 ML PKG MUCOUS MEM (11:26)
[2020-05-12 11:31] VITALS: BP 143/68; PULSE 84; RESP 16; O2SAT 94
--- NOTE | 2020-05-12 11:32 | PM.PROC ---
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 They are placed in the dorsal lithotomy position. There prepped and draped in a sterile fashion. A time-out performed. I performed cystoscopy. There were areas of Hunner's ulceration inside the bladder. It was on the back wall. It was less inflamed than had been in the past.This was biopsied in fulgurated. I then injected Kenalog at a dose of 40 milligrams/mL. I injected 3 cc total. There was minimal bleeding from the injection sites. The bladder was examined under low insufflation pressures and there was no active bleeding. The bladder was drained. The awakened and transferred to the PACU in stable condition. Implants: None Anesthesia: MAC Surgeon: Freddie Be MD Drains: No Packing: No Pathology: yes (Bladder biopsy) Complications: No immediate complications Condition: stable Disposition: PACU
[2020-05-12 12:00] VITALS: BP 184/83; PULSE 83; RESP 12
[2020-05-12 12:30] VITALS: BP 185/69; PULSE 80; RESP 14
== END 2020-05-12 12:40 | disposition home or self-care (01) ==
PROVIDERS: PCP Internal Medicine; Visit Provider Urology
PROC: 0TBB8ZX Excision of Bladder, Via Natural or Artificial Opening Endoscopic, Diagnostic (ICD-10-PCS; CPT 52204; principal; 2020-05-12 11:45)
DX: N30.10 Interstitial cystitis (chronic) without hematuria (principal); E66.9 Obesity, unspecified; Z68.33 Body mass index [BMI] 33.0-33.9, adult
CPT/HCPCS: 52204; 52283; 88305; A9270; J0690; J2704; J3010; J3301; J7120

== ENCOUNTER 2020-12-21 14:08 | Outpatient (CLI) | payer MEDICARE, OTHER, SELFPAY | END 2020-12-21 14:09 | disposition home or self-care (01) | LOC: ANHCOVIDVC 14:08 | PROVIDERS: PCP Internal Medicine | DX: Z23 Encounter for immunization (principal) | CPT/HCPCS: 0001A; 91300 ==

== ENCOUNTER 2021-01-09 13:50 | Outpatient (CLI) | payer MEDICARE, OTHER, SELFPAY ==
--- NOTE | 2021-01-09 14:01 | ECG_ITS ---
Measurements Intervals [place] Rate: 88 P: 84 GA: 226 QRS: 3 QRSD: 81 T: 56 QT: 354 QTc: 430 Interpretive Statements SINUS RHYTHM WITH FIRST DEGREE AV BLOCK ATRIAL PREMATURE COMPLEXES DELAYED PRECORDIAL R/S TRANSITION LOW QRS VOLTAGE IN PRECORDIAL LEADS ABNORMAL ECG Electronically Signed On 01-09-2021 14:19:56 CDT by Chandrakant Zhao D.O.
== END 2021-01-09 13:51 | disposition home or self-care (01) ==
PROVIDERS: PCP Internal Medicine; Visit Provider Internal Medicine
DX: I49.9 Cardiac arrhythmia, unspecified (principal); I44.30 Unspecified atrioventricular block
CPT/HCPCS: 93005

== ENCOUNTER 2021-01-11 13:52 | Outpatient (CLI) | payer MEDICARE, OTHER, SELFPAY | END 2021-01-11 13:53 | disposition home or self-care (01) | LOC: ANHCOVIDVC 13:53 | PROVIDERS: PCP Internal Medicine | DX: Z23 Encounter for immunization (principal) | CPT/HCPCS: 0002A; 91300 ==

== ENCOUNTER 2021-01-22 13:37 | Outpatient (CLI) | payer MEDICARE, OTHER, SELFPAY | END 2021-01-22 13:38 | disposition home or self-care (01) | LOC: ANHLAB 13:43 | PROVIDERS: PCP Internal Medicine; Visit Provider Urology | DX: N39.0 Urinary tract infection, site not specified (principal) | CPT/HCPCS: 87077; 87086; 87088; 87186 ==

== ENCOUNTER → 2021-07-16 18:16 | Outpatient (CLI) | payer MEDICARE, OTHER, SELFPAY ==
--- NOTE | ~2021-07-16 | XR_ITS ---
EXAMINATION: XR lumbar spine 2-3V DATE: 07/16/2021 19:04 INDICATION: Dorsalgia, unspecified. TECHNIQUE: 3 views of lumbar spine were obtained. COMPARISON: None. FINDINGS: There is 8 degrees levocurvature of thoracolumbar spine. Vertebral body heights are normal. There is mildly decreased disc height at L4-L5. There are endplate osteophytes at most levels. There is multilevel mild to moderate facet joint osteoarthritis. IMPRESSION: 1. Mild lumbar spondylosis. Reviewed, dictated and finalized at location A. IMPRESSION: 1. Mild lumbar spondylosis.
--- NOTE | ~2021-07-16 | XR_ITS ---
EXAMINATION: XR hip RT min 2V DATE: 07/16/2021 19:04 INDICATION: Right hip pain. TECHNIQUE: 2 views of right hip were obtained. COMPARISON: None. FINDINGS: Bone alignment is normal. No fracture. Right hip joint space is normal. IMPRESSION: 1. Normal right hip. Reviewed, dictated and finalized at location A. IMPRESSION: 1. Normal right hip.
== END ==
PROVIDERS: PCP Internal Medicine; Visit Provider Internal Medicine
DX: M25.551 Pain in right hip (principal); M47.896 Other spondylosis, lumbar region
CPT/HCPCS: 72100; 73502

== ENCOUNTER 2022-04-17 12:47 | Outpatient (CLI) | payer MEDICARE, OTHER, SELFPAY ==
--- NOTE | ~2022-04-17 | XR_ITS ---
XR hip BI wo pelvis DATE: 04/17/2022 13:20 INDICATION: Bilateral hip pain TECHNIQUE: AP and lateral views of each hip COMPARISON: None FINDINGS: The pubic symphysis and sacroiliac joints are intact. No fracture or dislocation, avascular necrosis or bone destruction of either hip is noted. Hip joint spaces are symmetric and relatively p reserved. IMPRESSION: No fracture or dislocation or bone destruction Reviewed, dictated and finalized at location A.
== END 2022-04-17 12:48 | disposition home or self-care (01) ==
PROVIDERS: PCP Internal Medicine; Visit Provider Internal Medicine
DX: M25.551 Pain in right hip (principal); M25.552 Pain in left hip; G89.29 Other chronic pain
CPT/HCPCS: 73521

== ENCOUNTER → 2022-04-17 13:30 | Outpatient (CLI) | payer MEDICARE, OTHER, SELFPAY ==
--- NOTE | ~2022-04-17 | DEXA_ITS ---
Bone Density Report Name: SUNNI TSE Age: 81 Sex: Female Ethnicity: White Date of : 1940 Indication: postmenopausal; screening for osteoporosis; Referring Provider: STEPHANI WAGNER Study: Bone densitometry was performed. Exam Date: April 17, 2022 Accession number: [id number] Bone Density: Region BMD T-score Z-score Classification AP Spine (L1-L4) 1.068 0.2 3.0 Normal Femoral Neck (Left) 0.712 -1.2 1.2 Osteopenia Total Hip (Left) 0.827 -0.9 1.3 Normal Femoral Neck (Right) 0.769 -0.7 1.7 Normal Total Hip (Right) 0.849 -0.8 1.5 Normal Total Hip Mean 0.838 -0.9 1.4 Normal World Health Organization criteria for BMD impression classify patients as: Normal (T-score at or above -1.0), Osteopenia (T-score between -1.0 and -2.5), or Osteoporosis (T-score at or below -2.5). 10-year Fracture Risk(1): Major Osteoporotic Fracture 12% Hip Fracture 2.7% Reported Risk Factors: [place] (), Neck BMD=0.712, BMI=31.5 (1) FRAX(R) Version 3.08. Fracture probability calculated for an untreated patient. Fracture probability may be lower if the patient has received treatment. Previous Exams: Region Exam Age BMD T-score BMD Change BMD Change Date g/cm2 vs Baseline vs Previous AP Spine(L1-L4) 04/17/2022 81 1.068 0.2 -0.081 -0.070 04/29/2017 76 1.138 0.8 -0.011 -0.085* 03/31/2015 74 1.222 1.6 0.074* 0.040* 09/15/2012 72 1.183 1.2 0.034* 0.061* 02/07/2010 69 1.121 0.7 -0.027* -0.027* 06/03/2006 65 1.149 0.9 Total Hip(Left) 04/17/2022 81 0.827 -0.9 -0.137 -0.070 04/29/2017 76 0.897 -0.4 -0.067* -0.061* 03/31/2015 74 0.958 0.1 -0.005 -0.009 09/15/2012 72 0.967 0.2 0.004 0.017 02/07/2010 69 0.950 0.1 -0.013 -0.013 06/03/2006 65 0.964 0.2 Total Hip(Right) 04/17/2022 81 0.849 -0.8 -0.125 -0.091 04/29/2017 76 0.940 0.0 -0.034* -0.041* 03/31/2015 74 0.981 0.3 0.007 0.003 09/15/2012 72 0.978 0.3 0.004 0.066* 02/07/2010 69 0.912 -0.2 -0.062* -0.062* 06/03/2006 65 0.974 0.3 *Denotes significance at 95% confidence level, LSC for AP Spine = 0.022 g/cm2, LSC for Total Hip = 0.027 g/cm2 Clinical Information Provided by Patient: Has used the
== END ==
PROVIDERS: PCP Internal Medicine; Visit Provider Obstetrics & Gynecology Gynecology
DX: Z78.0 Asymptomatic menopausal state (principal); M85.852 Other specified disorders of bone density and structure, left thigh
CPT/HCPCS: 77080

== ENCOUNTER 2022-05-04 13:15 | Emergency (ER) | payer MEDICARE, OTHER, SELFPAY ==
[2022-05-04 13:29] VITALS: BP 114/71; PULSE 130; RESP 18; TEMP 36.8; O2SAT 95
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
== END 2022-05-04 14:22 | disposition home or self-care (01) ==
PROVIDERS: Emergency Provider Nurse Practitioner Family
DX: J06.9 Acute upper respiratory infection, unspecified (principal); Z20.822 Contact with and (suspected) exposure to COVID-19; M19.90 Unspecified osteoarthritis, unspecified site; K21.9 Gastro-esophageal reflux disease without esophagitis; Z86.711 Personal history of pulmonary embolism; E78.00 Pure hypercholesterolemia, unspecified; E03.9 Hypothyroidism, unspecified; I34.1 Nonrheumatic mitral (valve) prolapse; Z85.820 Personal history of malignant melanoma of skin; Z85.828 Personal history of other malignant neoplasm of skin; Z87.820 Personal history of traumatic brain injury; I20.9 Angina pectoris, unspecified
CPT/HCPCS: 87426; 87804; 99213; C9803; G0463

== ENCOUNTER 2022-09-27 00:43 | Day surgery (SDC) | payer MEDICARE, OTHER, SELFPAY ==
[2022-09-24 14:09] VITALS: BMI 36.6
--- NOTE | 2022-09-24 14:29 | PC.NURSE ---
Addendum entered by Griselda Ramirez RN 09/24/22 14:34: PT HOLDING XERALTO [address] BHATTI, LAST DOSE- 09/25/22. Original Note: Report to the Outpatient Waiting Room, entrance under the green pavilion located off [facility], at time __9:00AM on date __09/27/22 . Planned Procedure Time: _11:00AM . Time changes happen often and if your time is changed the preop area will call you the afternoon before. - You and your visitor will be asked to self-screen and do not enter if you have any COVID symptoms. - Only one visitor is requested with a max of two and NO children visitors are allowed at this time. - The patient visitor may be requested to leave or wait in car when not with patient due to distancing restrictions. - A mask is optional within the hospital. Patients may have clear liquids (water, carbonated beverages, clear teas, apple juice) until 3 hours prior to surgery with a maximum of 20 ounces. - No food from midnight until time of surgery Take the following medications with a SIP of water the morning of surgery: __LEVOTHYROXINE, TRAMADOL NEEDED Medications to discontinue per physician ____HOLD ALL VITAMINS/SUPPLEMENTS 3 DAYS PRE-OP Date to take last dose___09/24/22 Please no make-up, nail chinese, hairspray, perfume, deodorant, or body powder the day of surgery. No jewelry (including any body piercings) or valuables the day of surgery, leave them at home. Please take a shower or bath the night before, or the morning of, surgery with an antibacterial soap. Wear comfortable, loose fitting clothing. Children are encouraged to wear pajamas. - Jewelry must be removed prior to entering the operating room. Rings and piercings that are not removed may be cut off. - The hospital will not accept responsibility for valuables. - Please leave all valuables, including medications, at home the day of surgery. If you are going home after surgery, a licensed drive away driver must drive you home. - NO public transportation without another adult if you receive anesthesia. - We recommend that an adult stay with you for 24 hours following discharge. - We also recommend that you do not drive, make important decision, drink alcoholic beverages, or take any drugs that were not prescribed by your health care provider for at least 24 hours after your discharge time. Follow any additional instructions given to you from your surgeon. If you or anyone in your household have experienced Covid symptoms in the past week, please notify your surgeon or the nurse liaison at the phone number below for possible testing. Telephone instructions given to __PATIENT & SON and asked if any additional questions and then verbalized understanding. Patient advised to call surgeon office or pre surgery nurse liaison [phone] if any additional questions.
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
--- NOTE | 2022-09-27 07:15 | WPDHPUPDATE1 ---
History and Physical Update Update Date/Time: 09/27/22 07:15 History and Physical has been reviewed, including an updated exam of the patient. There are NO changes in the patient's condition. Risks, benefits, and alternatives have been discussed and questions answered. Patient agrees to proceed with procedure.
[2022-09-27 09:20] VITALS: BP 150/77; PULSE 94; RESP 20; TEMP 36.3; O2SAT 94
[2022-09-27] MEDS: LACTATED RINGERS 1,000 ML 30 ML IV CONT ×2 (09:50→11:48)
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
[2022-09-27] MEDS: ceFAZolin 2 GM/D5W 50 ML 2 GM/50 ML BAG IVPB (11:21)
[2022-09-27] MEDS: TRIAMCINOLONE ACET INJ 40 MG/ML VIAL 2000 MG XX (11:42)
[2022-09-27] MEDS: LIDOCAINE HCL 2% GEL UROJET 10 ML PKG MUCOUS MEM (11:42)
--- NOTE | 2022-09-27 11:46 | W.PM.PROC2 ---
Procedure Note - Detailed Date of Procedure 09/27/22 Pre-op Diagnosis HUNNERS ULCER Post-op Diagnosis Same Procedure Performed Cystoscopy, bladder biopsy, steroid injection Surgeon Freddie Be MD Anesthesia MAC and Local Findings Areas of ulceration within the bladder Description of Procedure She was correctly identified. Informed consent obtained. She from the operating room. She was given MAC anesthesia. She was placed in dorsal lithotomy position. She was prepped and draped in a sterile fashion. Time-out performed. Cystoscopy revealed a small capacity bladder with trabeculations and cellule formation. She had areas of Hunner's ulcer on the posterior wall and near the dome. I biopsied 2 of these areas. I generously fulgurated the lesion. I then injected Kenalog. I injected 200 mg. Concentration 40 mg per mill. All fulguration injection was done away from the ureteral orifice. I examined the bladder under low insufflation pressure. There was no bleeding. She was awakened transferred to PACU in stable condition. Estimated Blood Loss 1 Pathology Yes (Bladder biopsy) Complications No immediate complications Condition Stable Disposition PACU
[2022-09-27 11:48] VITALS: BP 143/72; PULSE 91; RESP 16; O2SAT 93
[2022-09-27] MEDS: oxyCODONE HCL (*CRX) 5 MG TAB IR PO (12:08)
[2022-09-27 12:18] VITALS: BP 156/75; PULSE 85; RESP 16
[2022-09-27] MEDS: fentaNYL CITRATE INJ (*CRX) 100 MCG/2 ML VIAL 25 MCG IV PUSH (12:31)
[2022-09-27 12:40] VITALS: BP 155/83; PULSE 82; RESP 16
== END 2022-09-27 12:50 | disposition home or self-care (01) ==
PROVIDERS: PCP Internal Medicine; Visit Provider Urology
PROC: 0TBB8ZX Excision of Bladder, Via Natural or Artificial Opening Endoscopic, Diagnostic (ICD-10-PCS; CPT 52204; principal; 2022-09-27 11:00)
DX: N30.10 Interstitial cystitis (chronic) without hematuria (principal); E03.9 Hypothyroidism, unspecified; E78.00 Pure hypercholesterolemia, unspecified; I34.1 Nonrheumatic mitral (valve) prolapse; Z87.820 Personal history of traumatic brain injury; Z86.711 Personal history of pulmonary embolism; Z79.01 Long term (current) use of anticoagulants; E66.9 Obesity, unspecified; Z68.37 Body mass index [BMI] 37.0-37.9, adult
CPT/HCPCS: 52204; 52283; 88305; A9270; J0690; J2704; J3010; J3301; J7120